=== PATIENT | male | born 1970 | race Two or more races ===

== ENCOUNTER 2019-04-03 12:51 | Observation (INO) | payer SELFPAY ==
[~2019-04-03] VITALS: Ht 185.4 cm; Wt 91.4 kg
[2019-04-03] MEDS ORDERED: MULTIVIT INFUSN,ADULT 4,VIT K 10 ML, THIAMINE INJ 100 MG, FOLIC ACID INJ 1 MG in IV NOR... IV ONE (13:45)
[2019-04-03] MEDS ORDERED: ONDANSETRON PF 4 MG/2 ML VIAL. IV ONE (13:45)
--- NOTE | 2019-04-03 14:22 | PHYS DOC ---
Past Medical History Past Medical History: Other (Alcoholism) Adult General Chief Complaint Chief Complaint: WITHDRAWL HPI HPI Patient is a 48 year old homeless male patient with history of alcohol abuse who presents with complaining of alcohol withdrawal. Patient states he is homeless for several years and drink 6 can of beer and some vodka and whiskey every day. Patient states he moved from [place] to this area 3 days ago to stay with his aunt but spends the last 2 nights sleep and tried to stop drinking alcohol and had one can of beer last night and one can this morning. Patient complaining of 2 episodes of nonbloody vomiting since this morning and shaking his hand like his previous episodes of alcohol withdrawal associated with chest soreness and shortness of breath. Patient states he was in another emergency room about 2 weeks ago for the same complaint. Patient denies fever and chills, diarrhea and constipation, abdominal pain, urinary symptoms, using the rock or smoking cigarettes, suicidal or homicidal ideation and hallucination. Review of Systems Review of Systems Constitutional: Denies fever or chills [] Eyes: Denies change in visual acuity, redness, or eye pain [] HENT: Denies nasal congestion or sore throat [] Respiratory: Denies cough, reports shortness of breath [] Cardiovascular: No additional information not addressed in HPI [] GI: Denies abdominal pain, bloody stools or diarrhea, reports nausea and vomiting [] : Denies dysuria or hematuria [] Musculoskeletal: Denies back pain or joint pain [] Integument: Denies rash or skin lesions [] Neurologic: Denies headache, focal weakness or sensory changes [] Endocrine: Denies polyuria or polydipsia [] All other systems were reviewed and found to be within normal limits, except as documented in this note. Current Medications Current Medications Current Medications Medications (Trade) Dose Ordered Sig/Ruddy Start Time Stop Time Status Last Admin Dose Admin Acetaminophen (Tylenol) 500 mg PRN Q6HRS PRN 04/03/19 16:30 Acetaminophen/ Hydrocodone Bitart (Lortab 5/325) 1 tab PRN Q4HRS PRN 04/03/19 16:30 Calcium Carbonate/ Glycine (Tums) 500 mg PRN AFTMEALHC PRN 04/03/19 16:30 Chlordiazepoxide (Librium) 25 mg PRN Q6HRS PRN 04/03/19 16:30 Clonidine HCl (Catapres) 0.1 mg PRN Q1HR PRN 04/03/19 16:30 Folic Acid (Folic Acid) 1 mg DAILY 04/04/19 09:00 UNV Lorazepam (Ativan Inj) 1 mg 1X ONCE 04/03/19 15:45 04/03/19 15:46 DC Morphine Sulfate (Morphine Sulfate) 2 mg PRN Q2HR PRN 04/03/19 16:30 Multivitamins (Thera M Plus) 1 tab DAILY 04/04/19 09:00 UNV Multivitamins 10 ml/Thiamine HCl 100 mg/Folic Acid 1 mg/Sodium Chloride 1,011.2 ml @ 1,000 mls/ hr 1X ONCE 04/03/19 13:45 04/03/19 14:48 DC 04/03/19 14:59 1,000 MLS/HR Nicotine (Nicoderm Cq 21mg) 1 patch PRN DAILY PRN 04/03/19 16:30 Ondansetron HCl (Zofran) 4 mg PRN Q6HRS PRN 04/03/19 16:30 Thiamine Mononitrate (Vitamin B-1) 100 mg DAILY 04/04/19 09:00 UNV Zolpidem Tartrate (Ambien) 5 mg PRN QHS PRN 04/03/19 16:30 Allergies Allergies Allergies Coded Allergies Type Severity Reaction Last Updated Verified No Known Drug Allergies 04/03/19 No Physical Exam Physical Exam Constitutional: Well nourished, mild distress, non-toxic appearance. [] HENT: Normocephalic, atraumatic, bilateral external ears normal, oropharynx moist, no oral exudates, nose normal. [] Eyes: PERRLA, EOMI, conjunctiva normal, no discharge. [] Neck: Normal range of motion, no tenderness, supple, no stridor. [] Cardiovascular:Heart rate regular rhythm, no murmur [] Lungs & Thorax: Bilateral breath sounds clear to auscultation [] Abdomen: Bowel sounds normal, epigastric voluntary guarding, soft, no tenderness, no masses, no pulsatile masses. [] Skin: Warm, dry, no erythema, no rash. [] Back: No tenderness, no CVA tenderness. [] Extremities: No tenderness, no cyanosis, no clubbing, ROM intact, no edema, tremor of upper extremity. [] Neurologic: Alert and oriented X 3, normal motor function, normal sensory function, no focal deficits noted. [] Psychologic: Affect anxious, judgement normal, mood normal. [] Current Patient Data Vital Signs Vital Signs Date Time Temp Pulse Resp B/P (MAP) Pulse Ox O2 Delivery O2 Flow Rate FiO2 04/03/19 14:22 98.2 83 16 124/78 (93) 94 Room Air 98.2 Lab Values Laboratory Tests Test 04/03/19 14:33 White Blood Count 3.9 x10^3/uL (4.0-11.0) L Red Blood Count 4.11 x10^6/uL (4.30-5.70) L Hemoglobin 12.8 g/dL (13.0-17.5) L Hematocrit 38.2 % (39.0-53.0) L Mean Corpuscular Volume 93 fL (79-100) Mean Corpuscular Hemoglobin 31 pg (25-35) Mean Corpuscular Hemoglobin Concent 33 g/dL (31-37) Red Cell Distribution Width 15.2 % (11.5-14.5) H Platelet Count 116 x10^3/uL (140-400) L Neutrophils (%) (Auto) 63 % (31-73) Lymphocytes (%) (Auto) 28 % (24-48) Monocytes (%) (Auto) 7 % (0-9) Eosinophils (%) (Auto) 0 % (0-3) Basophils (%) (Auto) 1 % (0-3) Neutrophils # (Auto) 2.5 x10^3/uL (1.8-7.7) Lymphocytes # (Auto) 1.1 x10^3/uL (1.0-4.8) Monocytes # (Auto) 0.3 x10^3/uL (0.0-1.1) Eosinophils # (Auto) 0.0 x10^3/uL (0.0-0.7) Basophils # (Auto) 0.1 x10^3/uL (0.0-0.2) Prothrombin Time 13.0 SEC (11.7-14.0) Prothrombin Time INR 1.0 (0.8-1.1) Sodium Level 137 mmol/L (136-145) Potassium Level 3.8 mmol/L (3.5-5.1) Chloride Level 97 mmol/L (98-107) L Carbon Dioxide Level 26 mmol/L (21-32) Anion Gap 14 (6-14) Blood Urea Nitrogen 8 mg/dL (8-26) Creatinine 0.7 mg/dL (0.7-1.3) Estimated GFR (Cockcroft-Gault) 119.9 Glucose Level 83 mg/dL (70-99) Calcium Level 8.9 mg/dL (8.5-10.1) Magnesium Level 2.0 mg/dL (1.8-2.4) Total Bilirubin 0.7 mg/dL (0.2-1.0) Direct Bilirubin 0.2 mg/dL (0.0-0.2) Aspartate Amino Transferase (AST) 125 U/L (15-37) H Alanine Aminotransferase (ALT) 100 U/L (16-63) H Alkaline Phosphatase 69 U/L (46-116) Troponin I Quantitative < 0.017 ng/mL (0.000-0.055) Total Protein 8.1 g/dL (6.4-8.2) Albumin 4.1 g/dL (3.4-5.0) Ethyl Alcohol Level 63 mg/dL (0-10) H Laboratory Tests 04/03/19 14:33 Laboratory Tests 04/03/19 14:33 EKG EKG EKG interpreted by me. EKG at 1424 showed normal sinus rhythm at rate of 81, normal [place] and QT intervals, poor R-wave progress in anteroseptal leads, no acute distress and T-wave elevation. Radiology/Procedures Radiology/Procedures [] Course & Med Decision Making Course & Med Decision Making Pertinent Labs reviewed. (See chart for details) Evaluation of patient in ER showed 48-year-old homeless patient with history of alcoholism presented to ER with complaining of alcohol withdrawal and nausea and vomiting. Patient had alcohol level of 63 with tremor without hypertension or tachycardia. Patient did not give a urine sample. Patient treated with IV fluid, Zofran, Ativan with improvement of his condition. Patient requiring admission for further evaluation and treatment. Discussed with Dr. Palmer who is in agre ement with admission. Discussed findings and plan with patient and family, who acknowledge understanding and agreement. Dragon Disclaimer Dragon Disclaimer This electronic medical record was generated, in whole or in part, using a voice recognition dictation system. Departure Departure Impression: Primary Impression: Alcohol withdrawal Additional Impressions: Nausea and vomiting Elevated liver function tests Pancytopenia Homelessness Disposition: ADMITTED INPATIENT (at 1606) Admitting Physician: RA (Dr. Palmer accepted admission at 1605) Condition: IMPROVED Referrals: NO PCP (PCP) Problem Qualifiers Primary Impression: Alcohol withdrawal Complication of substance-induced condition: uncomplicated Qualified Codes: F10.230 - Alcohol dependence with withdrawal, uncomplicated Additional Impressions: Nausea and vomiting Vomiting type: unspecified Vomiting Intractability: non-intractable Qualified Codes: R11.2 - Nausea with vomiting, unspecified АЛЕКСАНДР CHERRY MD Apr 03, 2019 14:22
--- NOTE | 2019-04-03 14:28 | EKG ---
[facility] [address] [place] [address] Test Date: 2019-04-03 Test Time: 14:24:39 Pat Name: CLARISSA CHAMORRO Department: Room: Gender: M Crime Victim Specialist: GRADY : 1970 Requested By: АЛЕКСАНДР CHERRY Order Number: [id number] Reading MD: Measurements Intervals Cameron Rate: 81 P: 69 GA: 182 QRS: 9 QRSD: 92 T: 11 QT: 356 QTc: 414 Interpretive Statements SINUS RHYTHM QRS(T) CONTOUR ABNORMALITY CONSIDER ANTEROSEPTAL MYOCARDIAL DAMAGE POSSIBLY ABNORMAL ECG RI6.01 No previous ECG available for comparison
[2019-04-03 14:46] LABS: BASO # 0.1 x10^3/uL (0.0-0.2); BASO % 1 % (0-3); EOS % 0 % (0-3); HEMATOCRIT 38.2 % (39.0-53.0); HEMOGLOBIN 12.8 g/dL (13.0-17.5); LYMPH # 1.1 x10^3/uL (1.0-4.8); LYMPH % 28 % (24-48); MEAN CORPUSCULAR HEMOGLOBIN 31 pg (25-35); MEAN CORPUSCULAR HGB CONC 33 g/dL (31-37); MEAN CORPUSCULAR VOLUME 93 fL (79-100); MONO # 0.3 x10^3/uL (0.0-1.1); MONO % 7 % (0-9); NEUT # 2.5 x10^3/uL (1.8-7.7); NEUT % 63 % (31-73); PLATELET COUNT 116 x10^3/uL (140-400); RED BLOOD COUNT 4.11 x10^6/uL (4.30-5.70); RED CELL DISTRIBUTION WIDTH 15.2 % (11.5-14.5); WHITE BLOOD COUNT 3.9 x10^3/uL (4.0-11.0)
[2019-04-03 15:20] LABS: CALCIUM 8.9 mg/dL (8.5-10.1); CREATININE 0.7 mg/dL (0.7-1.3); GFR 119.9; POTASSIUM 3.8 mmol/L (3.5-5.1)
[2019-04-03 15:32] LABS: ALBUMIN 4.1 g/dL (3.4-5.0); DIRECT BILIRUBIN 0.2 mg/dL (0.0-0.2); TOTAL BILIRUBIN 0.7 mg/dL (0.2-1.0); TOTAL PROTEIN 8.1 g/dL (6.4-8.2)
[2019-04-03] MEDS ORDERED: MORPHINE SULFATE 2 MG/ML VIAL. IV PRN (16:30)
[2019-04-03] MEDS ORDERED: ZOLPIDEM 5 MG TABLET. PO PRN (16:30)
[2019-04-03] MEDS ORDERED: NICOTINE 21MG PATCH. TD PRN (16:30)
[2019-04-03] MEDS ORDERED: CALCIUM CARBONATE 500 MG TAB.CHEW PO PRN (16:30)
[2019-04-03] MEDS ORDERED: HYDROcodone/APAP 5/325MG 1 TAB TABLET PO PRN (16:30)
[2019-04-03] MEDS ORDERED: ACETAMINOPHEN 500 MG TABLET PO PRN (16:30)
[2019-04-03] MEDS ORDERED: cloNIDine HCL 0.1 MG TABLET PO PRN (16:30)
[2019-04-03 17:27] LABS: BILIRUBIN,URINE NEGATIVE (NEG); CLARITY,URINE CLEAR; COLOR,URINE AMBER; NITRITE,URINE NEGATIVE (NEG); PH,URINE 6.5; PROTEIN,URINE NEGATIVE (NEG-TRACE)
[2019-04-03 17:34] LABS: BARBITURATES NEG (NEG); BENZODIAZEPINES NEG (NEG); CANNABINOIDS NEG (NEG); COCAINE NEG (NEG); METHADONE NEG (NEG); OPIATES NEG (NEG); PHENCYCLIDINE NEG (NEG)
[2019-04-03 17:35] LABS: AMPHETAMINE/METHAMPHETAMINE NEG (NEG)
[2019-04-03 18:05] LABS: BACTERIA,URINE 0 /HPF (0-FEW); RBC,URINE 0 /HPF (0-2); WBC,URINE 0 /HPF (0-4)
--- NOTE | 2019-04-03 18:37 | PDOC1 ---
History and Physical Date of Admission Date of Admission DATE: 04/03/19 TIME: 18:33 Identification/Chief Complaint Chief Complaint alcohol 67, homeless,a bd pain Source Source: Caregiver, Chart review, Patient History of Present Illness History of Present Illness NOn toxic appearing, i see him at ER< admitted by midlevel bec of etoh 67 with some abd pain and emesis x 1. HE is homeless but came from someone/s house and claims someone will take him in so no need for senior care, Unsure if interested in AA. LAbs unimpressive, but sinus tachy with SBP 160s, not on any home meds This will be oBS only admit Admitted to med tele Past Medical History Cardiovascular: HTN Psych: Addictions Past Surgical History Past Surgical History: No pertinent history Family History Family History: Family History Unknown Social History Smoke: <1 pack per day ALCOHOL: heavy Drugs: None Current Problem List Problem List Problems Medical Problems: (1) Alcohol withdrawal Status: Acute (2) Elevated liver function tests Status: Acute (3) Homelessness Status: Acute (4) Nausea and vomiting Status: Acute (5) Pancytopenia Status: Acute Current Medications Current Medications Current Medications Multivitamins 10 ml/Thiamine HCl 100 mg/Folic Acid 1 mg/Sodium Chloride 1,011.2 ml @ 1,000 mls/ hr 1X ONCE IV Last administered on 04/03/19at 14:59; Start 04/03/19 at 13:45; Stop 04/03/19 at 14:48; Status DC Ondansetron HCl (Zofran) 4 mg 1X ONCE IV Last administered on 04/03/19at 14:53; Start 04/03/19 at 13:45; Stop 04/03/19 at 14:48; Status DC Lorazepam (Ativan Inj) 1 mg 1X ONCE IVP Last administered on 04/03/19at 17:10; Start 04/03/19 at 15:45; Stop 04/03/19 at 15:46; Status DC Chlordiazepoxide (Librium) 25 mg PRN Q6HRS PRN PO ANXIETY / AGITATION; Start 04/03/19 at 16:30 Zolpidem Tartrate (Ambien) 5 mg PRN QHS PRN PO INSOMNIA; Start 04/03/19 at 16:30 Ondansetron HCl (Zofran) 4 mg PRN Q6HRS PRN IVP NAUSEA/VOMITING; Start 04/03/19 at 16:30 Nicotine (Nicoderm Cq 21mg) 1 patch PRN DAILY PRN TD SMOKING CESSATION; Start 04/03/19 at 16:30 Acetaminophen/ Hydrocodone Bitart (Lortab 5/325) 1 tab PRN Q4HRS PRN PO MODERATE PAIN, SEVERE PAIN; Start 04/03/19 at 16:30 Morphine Sulfate (Morphine Sulfate) 2 mg PRN Q2HR PRN IV PAIN; Start 04/03/19 at 16:30 Calcium Carbonate/ Glycine (Tums) 500 mg PRN AFTMEALHC PRN PO INDIGESTION; Start 04/03/19 at 16:30 Clonidine HCl (Catapres) 0.1 mg PRN Q1HR PRN PO HYPERTENSION; Start 04/03/19 at 16:30 Acetaminophen (Tylenol) 500 mg PRN Q6HRS PRN PO MILD PAIN / TEMP; Start 04/03/19 at 16:30 Multivitamins (Thera M Plus) 1 tab DAILY PO ; Start 04/04/19 at 09:00 Thiamine Mononitrate (Vitamin B-1) 100 mg DAILY PO ; Start 04/04/19 at 09:00 Folic Acid (Folic Acid) 1 mg DAILY PO ; Start 04/04/19 at 09:00 Allergies Allergies: Coded Allergies: No Known Drug Allergies (Unverified , 04/03/19) ROS Review of System nausea, emesis x 1 , all else neg 14 pt Physical Exam General: Alert, Oriented X3, Cooperative, No acute distress HEENT: Atraumatic, PERRLA, EOMI Lungs: Clear to auscultation, Normal air movement Heart: S1S2, no thrills, no rubs, no gallops, no murmurs, no jug vein distention, other (sinus tachy) Cardiovascular: S1, S2 Abdomen: Normal bowel sounds, Soft, No tenderness, No hepatosplenomegaly, No masses Male Genitals Exam: normal genitalia, normal prostate Rectal Exam: not examined Extremities: No clubbing, No cyanosis, No edema, Normal pulses, No tenderness/swelling Skin: No rashes, No breakdown, No significant lesion Neuro: Normal gait, Normal speech, Strength at 5/5 X4 ext, Normal tone, Sensation intact, Cranial nerves 3-12 NL, Reflexes 2+ Psych/Mental Status: Mental status NL, Mood NL Vitals Vitals Vital Signs Date Time Temp Pulse Resp B/P (MAP) Pulse Ox O2 Delivery O2 Flow Rate FiO2 04/03/19 16:29 77 18 127/80 (96) 94 Room Air 04/03/19 14:22 98.2 98.2 Labs Labs Laboratory Tests Test 04/03/19 14:33 04/03/19 17:13 White Blood Count 3.9 x10^3/uL (4.0-11.0) Red Blood Count 4.11 x10^6/uL (4.30-5.70) Hemoglobin 12.8 g/dL (13.0-17.5) Hematocrit 38.2 % (39.0-53.0) Mean Corpuscular Volume 93 fL (79-100) Mean Corpuscular Hemoglobin 31 pg (25-35) Mean Corpuscular Hemoglobin Concent 33 g/dL (31-37) Red Cell Distribution Width 15.2 % (11.5-14.5) Platelet Count 116 x10^3/uL (140-400) Neutrophils (%) (Auto) 63 % (31-73) Lymphocytes (%) (Auto) 28 % (24-48) Monocytes (%) (Auto) 7 % (0-9) Eosinophils (%) (Auto) 0 % (0-3) Basophils (%) (Auto) 1 % (0-3) Neutrophils # (Auto) 2.5 x10^3/uL (1.8-7.7) Lymphocytes # (Auto) 1.1 x10^3/uL (1.0-4.8) Monocytes # (Auto) 0.3 x10^3/uL (0.0-1.1) Eosinophils # (Auto) 0.0 x10^3/uL (0.0-0.7) Basophils # (Auto) 0.1 x10^3/uL (0.0-0.2) Prothrombin Time 13.0 SEC (11.7-14.0) Prothromb Time International Ratio 1.0 (0.8-1.1) Sodium Level 137 mmol/L (136-145) Potassium Level 3.8 mmol/L (3.5-5.1) Chloride Level 97 mmol/L (98-107) Carbon Dioxide Level 26 mmol/L (21-32) Anion Gap 14 (6-14) Blood Urea Nitrogen 8 mg/dL (8-26) Creatinine 0.7 mg/dL (0.7-1.3) Estimated GFR (Cockcroft-Gault) 119.9 Glucose Level 83 mg/dL (70-99) Calcium Level 8.9 mg/dL (8.5-10.1) Magnesium Level 2.0 mg/dL (1.8-2.4) Total Bilirubin 0.7 mg/dL (0.2-1.0) Direct Bilirubin 0.2 mg/dL (0.0-0.2) Aspartate Amino Transf (AST/SGOT) 125 U/L (15-37) Alanine Aminotransferase (ALT/SGPT) 100 U/L (16-63) Alkaline Phosphatase 69 U/L (46-116) Troponin I Quantitative < 0.017 ng/mL (0.000-0.055) Total Protein 8.1 g/dL (6.4-8.2) Albumin 4.1 g/dL (3.4-5.0) Ethyl Alcohol Level 63 mg/dL (0-10) Urine Collection Type Void Urine Color Shana Urine Clarity Clear Urine pH 6.5 Urine Specific [place] 1.020 Urine Protein Negative mg/dL (NEG-TRACE) Urine Glucose (UA) Negative mg/dL (NEG) Urine Ketones (Stick) 40 mg/dL (NEG) Urine Blood Negative (NEG) Urine Nitrite Negative (NEG) Urine Bilirubin Negative (NEG) Urine Urobilinogen Dipstick 1.0 mg/dL (0.2 mg/dL) Urine Leukocyte Esterase Negative (NEG) Urine RBC 0 /HPF (0-2) Urine WBC 0 /HPF (0-4) Urine Bacteria 0 /HPF (0-FEW) Urine Mucus Mod /LPF Urine Opiates Screen Neg (NEG) Urine Methadone Screen Neg (NEG) Urine Barbiturates Neg (NEG) Urine Phencyclidine Screen Neg (NEG) Urine Amphetamine/Methamphetamine Neg (NEG) Urine Benzodiazepines Screen Neg (NEG) Urine Cocaine Screen Neg (NEG) Urine Cannabinoids Screen Neg (NEG) Urine Ethyl Alcohol Pos (NEG) Laboratory Tests Test 04/03/19 14:33 04/03/19 17:13 White Blood Count 3.9 x10^3/uL (4.0-11.0) Red Blood Count 4.11 x10^6/uL (4.30-5.70) Hemoglobin 12.8 g/dL (13.0-17.5) Hematocrit 38.2 % (39.0-53.0) Mean Corpuscular Volume 93 fL (79-100) Mean Corpuscular Hemoglobin 31 pg (25-35) Mean Corpuscular Hemoglobin Concent 33 g/dL (31-37) Red Cell Distribution Width 15.2 % (11.5-14.5) Platelet Count 116 x10^3/uL (140-400) Neutrophils (%) (Auto) 63 % (31-73) Lymphocytes (%) (Auto) 28 % (24-48) Monocytes (%) (Auto) 7 % (0-9) Eosinophils (%) (Auto) 0 % (0-3) Basophils (%) (Auto) 1 % (0-3) Neutrophils # (Auto) 2.5 x10^3/uL (1.8-7.7) Lymphocytes # (Auto) 1.1 x10^3/uL (1.0-4.8) Monocytes # (Auto) 0.3 x10^3/uL (0.0-1.1) Eosinophils # (Auto) 0.0 x10^3/uL (0.0-0.7) Basophils # (Auto) 0.1 x10^3/uL (0.0-0.2) Prothrombin Time 13.0 SEC (11.7-14.0) Prothromb Time International Ratio 1.0 (0.8-1.1) Sodium Level 137 mmol/L (136-145) Potassium Level 3.8 mmol/L (3.5-5.1) Chloride Level 97 mmol/L (98-107) Carbon Dioxide Level 26 mmol/L (21-32) Anion Gap 14 (6-14) Blood Urea Nitrogen 8 mg/dL (8-26) Creatinine 0.7 mg/dL (0.7-1.3) Estimated GFR (Cockcroft-Gault) 119.9 Glucose Level 83 mg/dL (70-99) Calcium Level 8.9 mg/dL (8.5-10.1) Magnesium Level 2.0 mg/dL (1.8-2.4) Total Bilirubin 0.7 mg/dL (0.2-1.0) Direct Bilirubin 0.2 mg/dL (0.0-0.2) Aspartate Amino Transf (AST/SGOT) 125 U/L (15-37) Alanine Aminotransferase (ALT/SGPT) 100 U/L (16-63) Alkaline Phosphatase 69 U/L (46-116) Troponin I Quantitative < 0.017 ng/mL (0.000-0.055) Total Protein 8.1 g/dL (6.4-8.2) Albumin 4.1 g/dL (3.4-5.0) Ethyl Alcohol Level 63 mg/dL (0-10) Urine Collection Type Void Urine Color Shana Urine Clarity Clear Urine pH 6.5 Urine Specific [place] 1.020 Urine Protein Negative mg/dL (NEG-TRACE) Urine Glucose (UA) Negative mg/dL (NEG) Urine Ketones (Stick) 40 mg/dL (NEG) Urine Blood Negative (NEG) Urine Nitrite Negative (NEG) Urine Bilirubin Negative (NEG) Urine Urobilinogen Dipstick 1.0 mg/dL (0.2 mg/dL) Urine Leukocyte Esterase Negative (NEG) Urine RBC 0 /HPF (0-2) Urine WBC 0 /HPF (0-4) Urine Bacteria 0 /HPF (0-FEW) Urine Mucus Mod /LPF Urine Opiates Screen Neg (NEG) Urine Methadone Screen Neg (NEG) Urine Barbiturates Neg (NEG) Urine Phencyclidine Screen Neg (NEG) Urine Amphetamine/Methamphetamine Neg (NEG) Urine Benzodiazepines Screen Neg (NEG) Urine Cocaine Screen Neg (NEG) Urine Cannabinoids Screen Neg (NEG) Urine Ethyl Alcohol Pos (NEG) VTE Prophylaxis Ordered VTE Prophylaxis Devices: Yes VTE Pharmacological Prophylaxi: Yes Assessment/Plan Assessment/Plan Alcohol dependence/addiction =- 67 level on arrival Sinus tachy Accel HTN, no dc HTN POA PLAN: CIWA< banana bag Admitted already to med monitor, can downgrade if doesnt dc tmr MAy eat as long as not vomiting which he is not doing so far Other spprotive meds Clonidine prn IF BP remains high, might need bP med on dc to home FULL CODE Seen at ANDREW ROSALES MD Apr 03, 2019 18:37
[2019-04-03] MEDS ORDERED: LABETALOL 20 MG/4 ML DISP.SYRIN. IVP PRN (18:45)
[2019-04-03 18:55] VITALS: BP 138/84
[2019-04-03] MEDS: ONDANSETRON PF 4 MG/2 ML VIAL. IVP PRN (19:27)
[2019-04-03] MEDS: chlordiazePOXIDE HCL 25 MG CAPSULE PO PRN (23:23)
[2019-04-03 23:33] VITALS: BP 140/94
[2019-04-04 03:33] VITALS: BP 145/94
[2019-04-04] MEDS: ONDANSETRON PF 4 MG/2 ML VIAL. IVP PRN ×2 (05:43→12:02)
[2019-04-04] MEDS: chlordiazePOXIDE HCL 25 MG CAPSULE PO PRN ×2 (05:46→12:01)
[2019-04-04 07:57] VITALS: BP 152/99
[2019-04-04] MEDS ORDERED: THIAMINE 100 MG TABLET. PO SCH (09:00)
[2019-04-04] MEDS ORDERED: FLU VAX QS 2019-20 (36MOS+)/PF 0.5 ML SYRINGE. VAX IM ONE (09:00)
[2019-04-04] MEDS ORDERED: FOLIC ACID 1 MG TABLET. PO SCH (09:00)
[2019-04-04] MEDS ORDERED: MULTIVITAMIN with MINERAL TABLET. PO SCH (09:00)
[2019-04-04 11:47] VITALS: BP 149/94
--- NOTE | 2019-04-04 12:30 | NUR ---
SW consulted for homelessness. Chart reviewed and discussed with RN. SW spoke with pt and pt reported he recently moved from [place] and stayed outside after being drunk. Pt does not work and unable to tell me how he supports himself. Pt does not believe ETOH use is a problem and does not want help. He states he is aware of all treatment areas and AA meetings. SW provided pt with community housing resources. Pt accepted resources and reported he plans to go and stay at his aunt. Pt denies other needs at this time.
--- NOTE | 2019-04-04 13:05 | PDOC ---
[employer] [facility] PROGRESS NOTE Chief Complaint Chief Complaint Alcohol dependence/addiction =- 67 level on arrival Sinus tachy Accel HTN History of Present Illness History of Present Illness 04/04/19 Pt seen and examined by me Reports that he feels much better DW RN Chart reviewed Vitals/I&O Vitals/I&O: Vital Signs Date Time Temp Pulse Resp B/P (MAP) Pulse Ox O2 Delivery O2 Flow Rate FiO2 04/04/19 11:47 98.4 60 18 149/94 (112) 97 Room Air 98.4 I & O 04/03/19 04/03/19 04/04/19 15:00 23:00 07:00 Intake Total 1491.2 ml 240 ml Output Total 100 ml 100 ml Balance 1391.2 ml 140 ml Physical Exam General: Alert, Oriented X3, Cooperative, No acute distress Heart: Regular rate, Normal S1, Normal S2 Lungs: Clear Abdomen: Normal bowel sounds, Soft, No tenderness, No hepatosplenomegaly, No masses Extremities: No clubbing, No cyanosis, No edema, Normal pulses, No tender ness/swelling Skin: No rashes, No breakdown, No significant lesion Labs Labs: Laboratory Tests Test 04/03/19 14:33 04/03/19 17:13 White Blood Count 3.9 x10^3/uL (4.0-11.0) Red Blood Count 4.11 x10^6/uL (4.30-5.70) Hemoglobin 12.8 g/dL (13.0-17.5) Hematocrit 38.2 % (39.0-53.0) Mean Corpuscular Volume 93 fL (79-100) Mean Corpuscular Hemoglobin 31 pg (25-35) Mean Corpuscular Hemoglobin Concent 33 g/dL (31-37) Red Cell Distribution Width 15.2 % (11.5-14.5) Platelet Count 116 x10^3/uL (140-400) Neutrophils (%) (Auto) 63 % (31-73) Lymphocytes (%) (Auto) 28 % (24-48) Monocytes (%) (Auto) 7 % (0-9) Eosinophils (%) (Auto) 0 % (0-3) Basophils (%) (Auto) 1 % (0-3) Neutrophils # (Auto) 2.5 x10^3/uL (1.8-7.7) Lymphocytes # (Auto) 1.1 x10^3/uL (1.0-4.8) Monocytes # (Auto) 0.3 x10^3/uL (0.0-1.1) Eosinophils # (Auto) 0.0 x10^3/uL (0.0-0.7) Basophils # (Auto) 0.1 x10^3/uL (0.0-0.2) Prothrombin Time 13.0 SEC (11.7-14.0) Prothromb Time International Ratio 1.0 (0.8-1.1) Sodium Level 137 mmol/L (136-145) Potassium Level 3.8 mmol/L (3.5-5.1) Chloride Level 97 mmol/L (98-107) Carbon Dioxide Level 26 mmol/L (21-32) Anion Gap 14 (6-14) Blood Urea Nitrogen 8 mg/dL (8-26) Creatinine 0.7 mg/dL (0.7-1.3) Estimated GFR (Cockcroft-Gault) 119.9 Glucose Level 83 mg/dL (70-99) Calcium Level 8.9 mg/dL (8.5-10.1) Magnesium Level 2.0 mg/dL (1.8-2.4) Total Bilirubin 0.7 mg/dL (0.2-1.0) Direct Bilirubin 0.2 mg/dL (0.0-0.2) Aspartate Amino Transf (AST/SGOT) 125 U/L (15-37) Alanine Aminotransferase (ALT/SGPT) 100 U/L (16-63) Alkaline Phosphatase 69 U/L (46-116) Troponin I Quantitative < 0.017 ng/mL (0.000-0.055) Total Protein 8.1 g/dL (6.4-8.2) Albumin 4.1 g/dL (3.4-5.0) Ethyl Alcohol Level 63 mg/dL (0-10) Urine Collection Type Void Urine Color Shana Urine Clarity Clear Urine pH 6.5 Urine Specific [place] 1.020 Urine Protein Negative mg/dL (NEG-TRACE) Urine Glucose (UA) Negative mg/dL (NEG) Urine Ketones (Stick) 40 mg/dL (NEG) Urine Blood Negative (NEG) Urine Nitrite Negative (NEG) Urine Bilirubin Negative (NEG) Urine Urobilinogen Dipstick 1.0 mg/dL (0.2 mg/dL) Urine Leukocyte Esterase Negative (NEG) Urine RBC 0 /HPF (0-2) Urine WBC 0 /HPF (0-4) Urine Bacteria 0 /HPF (0-FEW) Urine Mucus Mod /LPF Urine Opiates Screen Neg (NEG) Urine Methadone Screen Neg (NEG) Urine Barbiturates Neg (NEG) Urine Phencyclidine Screen Neg (NEG) Urine Amphetamine/Methamphetamine Neg (NEG) Urine Benzodiazepines Screen Neg (NEG) Urine Cocaine Screen Neg (NEG) Urine Cannabinoids Screen Neg (NEG) Urine Ethyl Alcohol Pos (NEG) Review of Systems Review of Systems: (-) CP, SOB Assessment and Plan Assessmemt and Plan Problems Medical Problems: (1) Alcohol withdrawal Status: Acute (2) Elevated liver function tests Status: Acute (3) Homelessness Status: Acute (4) Nausea and vomiting Status: Acute (5) Pancytopenia Status: Acute Alcohol dependence/addiction =- 67 level on arrival Sinus tachy Accel HTN Plan: CIWA protocol banana bag home meds PT/OT dvt ppx full code plan to discharge today Comment Review of Relevant I have reviewed the following items darwin (where applicable) has been applied. Medications: Current Medications Medications (Trade) Dose Ordered Sig/Ruddy Route PRN Reason Start Time Stop Time Status Last Admin Dose Admin Multivitamins 10 ml/Thiamine HCl 100 mg/Folic Acid 1 mg/Sodium Chloride 1,011.2 ml @ 1,000 mls/ hr 1X ONCE IV 04/03/19 13:45 04/03/19 14:48 DC 04/03/19 14:59 Ondansetron HCl (Zofran) 4 mg 1X ONCE IV 04/03/19 13:45 04/03/19 14:48 DC 04/03/19 14:53 Lorazepam (Ativan Inj) 1 mg 1X ONCE IVP 04/03/19 15:45 04/03/19 15:46 DC 04/03/19 17:10 Chlordiazepoxide (Librium) 25 mg PRN Q6HRS PRN PO ANXIETY / AGITATION 04/03/19 16:30 04/04/19 12:01 Zolpidem Tartrate (Ambien) 5 mg PRN QHS PRN PO INSOMNIA 04/03/19 16:30 04/03/19 23:23 Ondansetron HCl (Zofran) 4 mg PRN Q6HRS PRN IVP NAUSEA/VOMITING 04/03/19 16:30 04/04/19 12:02 Acetaminophen (Tylenol) 500 mg PRN Q6HRS PRN PO MILD PAIN / TEMP 04/03/19 16:30 04/04/19 09:58 Multivitamins (Thera M Plus) 1 tab DAILY PO 04/04/19 09:00 04/04/19 09:59 Thiamine Mononitrate (Vitamin B-1) 100 mg DAILY PO 04/04/19 09:00 04/04/19 09:58 Folic Acid (Folic Acid) 1 mg DAILY PO 04/04/19 09:00 04/04/19 09:59 Influenza Virus Vaccine Quadrival (Afluria Quad 2019-20 (3yr Up) Syringe) 0.5 ml ONCE ONCE VAX IM 04/04/19 09:00 04/04/19 09:01 DC 04/04/19 10:02 RUEL PIZARRO III DO Apr 04, 2019 13:05
--- NOTE | 2019-04-04 14:33 | NUR ---
Discharge instructions given to patient and family member regarding medication and follow up appointment. Education given over alcohol withdrawal and n/v. Script and discharge papers given to patient. Pt verbalizes understanding.
--- NOTE | 2019-04-05 13:19 | DS ---
DATE OF DISCHARGE: 04/04/2019 ADMISSION DIAGNOSIS: Alcohol withdrawal. DISCHARGE DIAGNOSIS: Resolving alcohol withdrawal. HOSPITAL COURSE: The patient is a pleasant middle-aged male who drinks too much whiskey. He presented with alcohol withdrawal. We gave him the alcohol withdrawal protocol. Yesterday, we saw him and examined, he was at his baseline and we discharged him to home. DISPOSITION: Home. ACTIVITY: As tolerated. DIET: Low sodium. MEDICATIONS: Please see the MRAD. TOTAL TIME: 34 minutes. RUEL PIZARRO DO DR: ROBERTO/ann JOB#: [id number] / [id number]
== END 2019-04-04 14:29 | disposition home or self-care (01) ==
LOC: ER 12:51 → INTOOBSV 15:44 → 6 SOUTH 15:44
PROVIDERS: ADMIT Internal Medicine; ATTEND Internal Medicine
DX: F10.239 Alcohol dependence with withdrawal, unspecified (principal); R79.89 Other specified abnormal findings of blood chemistry; R11.2 Nausea with vomiting, unspecified; D61.818 Other pancytopenia; I10 Essential (primary) hypertension; F17.200 Nicotine dependence, unspecified, uncomplicated; Z59.0 Homelessness
CPT/HCPCS: 36415; 80048; 80076; 80307; 81001; 83735; 84484; 85025; 85610; 90471; 90686; 93005; 96365; 96375; 96376; 99284; G0378; G0480; J2060; J2405; J7030; G0379

== ENCOUNTER 2019-12-13 21:27 | Emergency (ER) | payer SELFPAY ==
[~2019-12-13] VITALS: Ht 177.8 cm; Wt 82.0 kg
[2019-12-13 21:50] LABS: BASO % 1 % (0-3); EOS % 0 % (0-3); HEMOGLOBIN 14.1 g/dL (13.0-17.5); LYMPH # 1.3 x10^3/uL (1.0-4.8); LYMPH % 32 % (24-48); MEAN CORPUSCULAR HEMOGLOBIN 32 pg (25-35); MEAN CORPUSCULAR HGB CONC 34 g/dL (31-37); MEAN CORPUSCULAR VOLUME 94 fL (79-100); MONO # 0.4 x10^3/uL (0.0-1.1); MONO % 10 % (0-9); NEUT # 2.4 x10^3/uL (1.8-7.7); NEUT % 57 % (31-73); PLATELET COUNT 137 x10^3/uL (140-400); RED BLOOD COUNT 4.38 x10^6/uL (4.30-5.70); WHITE BLOOD COUNT 4.2 x10^3/uL (4.0-11.0)
[2019-12-13 21:53] LABS: BILIRUBIN,URINE NEGATIVE (NEG); CLARITY,URINE CLOUDY; COLOR,URINE YELLOW; NITRITE,URINE NEGATIVE (NEG); PROTEIN,URINE NEGATIVE (NEG-TRACE)
[2019-12-13 21:57] LABS: BACTERIA,URINE 0 /HPF (0-FEW); RBC,URINE 0 /HPF (0-2); WBC,URINE 0 /HPF (0-4)
[2019-12-13 22:00] LABS: BARBITURATES NEG (NEG); BENZODIAZEPINES NEG (NEG); CANNABINOIDS NEG (NEG); COCAINE NEG (NEG); METHADONE NEG (NEG); OPIATES NEG (NEG); PHENCYCLIDINE NEG (NEG)
[2019-12-13 22:02] LABS: AMPHETAMINE/METHAMPHETAMINE NEG (NEG)
[2019-12-13 22:04] LABS: ACETAMIN < 2 mcg/ml (10-30); CALCIUM 8.2 mg/dL (8.5-10.1); CREATININE 0.9 mg/dL (0.7-1.3); ETHANOL < 10 mg/dL (0-10); GFR 89.3; POTASSIUM 3.8 mmol/L (3.5-5.1); SALIC < 2.8 mg/dL (2.8-20.0)
[2019-12-13 22:06] LABS: ALBUMIN 3.2 g/dL (3.4-5.0); ALBUMIN/GLOBULIN RATIO 0.8 (1.0-1.7); MAGNESIUM 1.8 mg/dL (1.8-2.4); TOTAL BILIRUBIN 0.4 mg/dL (0.2-1.0); TOTAL PROTEIN 7.3 g/dL (6.4-8.2)
--- NOTE | 2019-12-13 22:21 | RAD ---
Exam: CT head and cervical spine without contrast INDICATION: Fall downstairs, confused TECHNIQUE: Sequential axial images through the head and cervical spine were obtained without the administration of IV contrast. Comparisons: None FINDINGS: Head: Craniotomy changes are noted in the right frontoparietal region. Underlying encephalomalacia is seen. No focal parenchymal lesion or hemorrhage is identified. There is no midline shift or sulcal effacement. No acute vascular territory infarction is identified. Castillo-white distinction is preserved. The ventricular system is within normal limits without compression hydrocephalus. The basal cisterns are well maintained. Extracranial soft tissue scalp contusion overlying the left parietal region. The Visualized portions of the paranasal sinuses and mastoid air cells are well-pneumatized. No acute fractures. Cervical spine: Vertebral body heights and alignment are well-maintained. Fracture to the cervical spine is not identified. No significant spondylotic change in cervical spine. Patchy airspace disease in the right upper lobe. Otherwise, visualized paraspinal soft tissues are unremarkable. IMPRESSION: 1. Extra cranial soft tissue scalp contusion overlying the left parietal region. No underlying osseous or intracranial abnormality. 2. Negative CT C-spine for acute traumatic injury. Exposure: One or more of the following in the visualized dose reduction techniques were utilized for this examination: 1. Automated exposure control 2. Adjustment of the MA and/or KV according to patient size Use of iterative of reconstructive technique Electronically signed by: Karlee Gibson MD (12/13/2019 10:18 PM) [id number]
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
[2019-12-13] MEDS ORDERED: IV NORMAL SALINE 1000ML BAG 1,000 ML IV ONE (23:00)
[2019-12-13] MEDS ORDERED: DIPH,PERTUSS(ACELL),TET VAC/PF 0.5 ML SYRINGE. VAX IM ONE (23:00)
[2019-12-13 23:21] VITALS: BP 135/80
--- NOTE | 2019-12-14 06:33 | EKG ---
[facility] [address] [place] [id number] Test Date: 2019-12-13 Test Time: 21:32:47 Pat Name: CLARISSA CHAMORRO Department: Room: Gender: M [employer]: : 1970 Requested By: SAM TOLENTINO Order Number: [id number] Reading MD: Measurements Intervals Chambers Rate: 94 P: 39 MD: 168 QRS: 25 QRSD: 90 T: 7 QT: 306 QTc: 387 Interpretive Statements SINUS RHYTHM NORMAL ECG RI6.02 No previous ECG available for comparison
== END 2019-12-13 23:23 | disposition home or self-care (01) ==
LOC: ER 21:27
DX: S00.83XA Contusion of other part of head, initial encounter (principal); S06.0X1A Concussion with loss of consciousness of 30 minutes or less, initial encounter; R05 Cough; R41.0 Disorientation, unspecified; F10.10 Alcohol abuse, uncomplicated; Z87.820 Personal history of traumatic brain injury; Z87.891 Personal history of nicotine dependence; Z98.890 Other specified postprocedural states; W18.09XA Striking against other object with subsequent fall, initial encounter; Y93.89 Activity, other specified; Y92.89 Other specified places as the place of occurrence of the external cause; Y99.8 Other external cause status
CPT/HCPCS: 36415; 70450; 71045; 72125; 80053; 80307; 80329; 81001; 83690; 83735; 83880; 84484; 85025; 90471; 90715; 93005; 96360; 99285; G0480; J7030